=== PATIENT | female | born 1990 | race Caucasian/White ===

== ENCOUNTER 2018-06-05 09:45 | Inpatient (IN) | payer MEDICAID, SELFPAY ==
[2018-06-05 11:07] LABS: HGB 13.3 g/dL (12.0-15.5); Mean Corpuscular Hemoglobin 31.7 pg (27.0-33.0); Mean Corpuscular Volume 90.7 fL (80-95); Mean Platelet Volume 10.7 fL (8.0-11.0); Platelet Count 253 x1000/uL (130-400); RBC 4.19 m/cumm (4.00-5.20); RBC Distribution Width 13.1 % (11.7-14.6)
[2018-06-05] MEDS: Oxytocin 10 UNITS/ML VIAL IM (18:47)
[2018-06-05] MEDS: Hamamelis Leaf/Glycerin 100 EACH BOX PR (20:09)
[2018-06-05] MEDS: Acetaminophen 325 MG TAB 650 MG PO (20:10)
[2018-06-05] MEDS: Docusate Sodium 100 MG CAP PO (20:10)
[2018-06-05] MEDS: Ibuprofen 600 MG TAB PO (20:10)
[2018-06-06] MEDS: Acetaminophen 325 MG TAB 650 MG PO ×2 (04:55→20:48)
[2018-06-06] MEDS: Ibuprofen 600 MG TAB PO ×2 (04:55→20:49)
[2018-06-06 07:28] LABS: Mean Corp. HGB Concentration 34.3 g/dL (32.0-36.0); Mean Corpuscular Hemoglobin 31.1 pg (27.0-33.0); Mean Corpuscular Volume 90.7 fL (80-95); Mean Platelet Volume 10.9 fL (8.0-11.0); Platelet Count 245 x1000/uL (130-400); RBC 3.86 m/cumm (4.00-5.20); RBC Distribution Width 12.9 % (11.7-14.6); White Blood Cell Count 16.74 k/cumm (4.4-10.8)
== END 2018-06-07 11:20 | disposition home or self-care (01) | DRG 775 ==
PROVIDERS: Admitting Provider Family Medicine; PCP Family Medicine; Visit Provider Family Medicine
DX: O69.89X0 Labor and delivery complicated by other cord complications, not applicable or unspecified (principal); Z37.0 Single live birth; O70.0 First degree perineal laceration during delivery; O75.81 Maternal exhaustion complicating labor and delivery; E66.9 Obesity, unspecified; Z3A.40 40 weeks gestation of pregnancy; O99.334 Smoking (tobacco) complicating childbirth; O99.214 Obesity complicating childbirth; F17.210 Nicotine dependence, cigarettes, uncomplicated
CPT/HCPCS: 36415; 85027; 86850; 86900; 86901